=== PATIENT | female | born 1995 | race African-American/Black ===

== ENCOUNTER 2019-09-26 15:10 | Emergency (ER) | payer SELFPAY ==
--- NOTE | 2019-09-26 16:03 | ER Document Report ---
ED Medical Screen (RME) - General Chief Complaint: Abdominal Cramping Stated Complaint: ABDOMINAL CRAMPING Time Seen by Provider: 09/26/19 16:00 Mode of Arrival: Ambulatory Information source: Patient Notes: 24-year-old female presented to ED for complaint of vaginal discharge she says is white and chunky. She denies any itchy or burning. She does say that she is having some mild pelvic cramping for about a week. She states she lived in [place] before now and her primary care doctor told her that her heart water was causing her to have bacterial vaginosis and she did get treated for bacterial vaginosis at that time. She states she is in [place] to visit her family before she gets sent to [employer]. She states she leaves [place] on 08 October. Patient is alert oriented respirations regular nonlabored speaking in full sentences. She states she is sexually active. She states her last menstrual period was September 06. I have greeted and performed a rapid initial assessment of this patient. A comprehensive ED assessment and evaluation of the patient, analysis of test results and completion of medical decision making process will be conducted by an additional ED providers. Physical Exam - Vital signs Vitals: Temp Pulse Resp BP Pulse Ox 98.5 F 74 18 128/84 H 100 09/26/19 15:32 09/26/19 15:32 09/26/19 15:32 09/26/19 15:32 09/26/19 15:32 Course - Vital Signs Vital signs: Temp Pulse Resp BP Pulse Ox 98.5 F 74 18 128/84 H 100 09/26/19 15:32 09/26/19 15:32 09/26/19 15:32 09/26/19 15:32 09/26/19 15:32
[2019-09-26 16:53] LABS: ABSOLUTE EOSINOPHILS # (AUTO) 0.2 10^3/uL (0.0-0.6); ABSOLUTE LYMPHOCYTES (AUTO) 1.6 10^3/uL (0.5-4.7); ABSOLUTE MONOCYTES (AUTO) 0.4 10^3/uL (0.1-1.4); ABSOLUTE NEUT (AUTO) 4.9 10^3/uL (1.7-8.2); BASOPHILS % (AUTO) 0.4 % (0-2); EOSINOPHILS % (AUTO) 2.6 % (0-6); HEMATOCRIT 36.3 % (36.0-47.0); HEMOGLOBIN 12.1 g/dL (12.0-15.5); MEAN CORPUSCULAR HEMOGLOBIN 27.2 pg (27.0-33.4); MEAN CORPUSCULAR HGB CONC 33.3 g/dL (32.0-36.0); MEAN CORPUSCULAR VOLUME 82 fl (80-97); MONOCYTES % (AUTO) 6.1 % (3-13); PLATELET COUNT 208 10^3/uL (150-450); RED BLOOD COUNT 4.44 10^6/uL (3.72-5.28); RED CELL DISTRIBUTION WIDTH 13.8 % (11.5-14.0); SEGMENTED NEUTROPHILS % (AUTO) 67.9 % (42-78); TOTAL CELLS COUNTED % (AUTO) 100 %; WHITE BLOOD COUNT 7.2 10^3/uL (4.0-10.5)
[2019-09-26 16:58] LABS: APPEARANCE,URINE SLIGHTLY-CLOUDY; BILIRUBIN,URINE NEGATIVE (NEGATIVE); COLOR,URINE YELLOW; GLUCOSE, URINE NEGATIVE (NEGATIVE); KETONES,URINE 80 mg/dL (NEGATIVE); PROTEIN,URINE NEGATIVE (NEGATIVE); URINE SPECIFIC GRAVITY 1.031; UROBILINOGEN,URINE NEGATIVE mg/dL (<2.0)
[2019-09-26 17:21] LABS: ALBUMIN 4.6 g/dL (3.5-5.0); ALKALINE PHOSPHATASE 89 U/L (38-126); ANION GAP 10 (5-19); ASPARTATE AMINO TRANSFERASE 25 U/L (14-36); BILIRUBIN,DIRECT 0.1 mg/dL (0.0-0.4); BILIRUBIN,TOTAL 0.5 mg/dL (0.2-1.3); BLOOD UREA NITROGEN 13 mg/dL (7-20); CALCIUM 9.4 mg/dL (8.4-10.2); CARBON DIOXIDE 28 mmol/L (22-30); CHLORIDE 101 mmol/L (98-107); GLUCOSE 78 mg/dL (75-110); POTASSIUM 3.9 mmol/L (3.6-5.0); TOTAL PROTEIN 8.5 g/dL (6.3-8.2)
[2019-09-26 17:52] LABS: BACTERIA (WET MOUNT) 4+ BACTERIA SEEN; EPITHELIALS (WET MOUNT) 3+ EPITHELIALS SEEN; T.VAGINALIS (WET MOUNT) NO TRICHOMONAS SEEN; WBCS (WET MOUNT) 1+ WBCS SEEN; YEAST (WET MOUNT) NO YEAST SEEN
[2019-09-26] MEDS ORDERED: METRONIDAZOLE 500 MG TABLET PO ONE (18:27)
--- NOTE | 2019-09-26 18:29 | ER Document Report ---
ED General - General Chief Complaint: Abdominal Pain Stated Complaint: ABDOMINAL CRAMPING Time Seen by Provider: 09/26/19 16:00 Mode of Arrival: Ambulatory Notes: This 24-year-old female presents emergency department with complaints of vaginal discharge pelvic cramps for the past week. She denies fever vomiting diarrhea. Denies pain with void. She reports history of BV for which she was treated with Flagyl for 5 days. She reports she is sexually active with 2 partners one uses condoms. She reports she is here from [place]. 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 TRAVEL OUTSIDE OF THE [place] IN LAST 30 DAYS: No - HPI Onset: Last week Onset/Duration: Sudden Quality of pain: Achy, Cramping Associated symptoms: None Exacerbated by: Denies Relieved by: Denies Similar symptoms previously: Yes Recently seen / treated by doctor: No - Related Data Allergies/Adverse Reactions: Penicillins Allergy (Verified 09/26/19 16:00) Past Medical History - General Information source: Patient - Social History Smoking Status: Never Smoker Chew tobacco use (# tins/day): No Drug Abuse: None Occupation: [employer] Lives with: Family Family History: None Patient has suicidal ideation: No Patient has homicidal ideation: No - Medical History Medical History: Negative Surgical Hx: Negative Review of Systems - Review of Systems Notes: Review HPI for review of systems., All other systems negative Physical Exam - Vital signs Vitals: Temp Pulse Resp BP Pulse Ox 98.5 F 74 18 128/84 H 100 09/26/19 15:32 09/26/19 15:32 09/26/19 15:32 09/26/19 15:32 09/26/19 15:32 - Notes Notes: PHYSICAL EXAMINATION: GENERAL: Well-appearing and in no acute distress HEAD: Atraumatic, normocephalic. EYES: Pupils equal round extraocular movements intact, sclera anicteric, conjunctiva are normal. ENT: nares patent, Moist mucous membranes. NECK: Normal range of motion, supple without lymphadenopathy LUNGS: CTAB and equal. No wheezes rales or rhonchi. HEART: Regular rate and rhythm without murmurs ABDOMEN: Soft, no tenderness. No guarding, no rebound EXTREMITIES: Normal range of motion, no pitting edema. NEUROLOGICAL: Cranial nerves grossly intact. PSYCH: Normal mood, normal affect. SKIN: Warm, Dry, normal turgor, no rashes or lesions noted - Genitourinary External exam: Normal Speculum exam: Vaginal discharge Bimanuel exam: Normal Notes: vaginal discharge with odor noted. Course - Re-evaluation Re-evalutation: 09/26/19 18:27 24-year-old female presents emergency department with complaints of vaginal discharge pelvic cramps for 1 week. Reports history of BV for which she was treated with Flagyl for 5 days. She reports she looked it up online and she knows she should have been treated for 7 days. She denies fever vomiting diarrhea. Reports she is sexually active with 2 partners one that uses condoms. Patient was given the option of waiting for her STD cultures being treated prophylactically or being called with results. She has requested to be called with results. She will be treated for the BV here and given a prescription for Flagyl. She was instructed on the importance of follow-up with the FLIGHT RADIO OFFICER to ensure is all cleared up. She verbalized understanding to all instructions. 09/26/19 16:25 09/26/19 16:25 MCV 82 fl (80-97) 09/26/19 16:25 MCH 27.2 pg (27.0-33.4) 09/26/19 16:25 MCHC 33.3 g/dL (32.0-36.0) 09/26/19 16:25 RDW 13.8 % (11.5-14.0) 09/26/19 16:25 Seg Neutrophils % 67.9 % (42-78) 09/26/19 16:25 Chloride 101 mmol/L (98-107) 09/26/19 16:25 Carbon Dioxide 28 mmol/L (22-30) 09/26/19 16:25 Anion Gap 10 (5-19) 09/26/19 16:25 Est GFR ( Amer) > 60 (>60) 09/26/19 16:25 Glucose 78 mg/dL (75-110) 09/26/19 16:25 Calcium 9.4 mg/dL (8.4-10.2) 09/26/19 16:25 Total Bilirubin 0.5 mg/dL (0.2-1.3) 09/26/19 16:25 AST 25 U/L (14-36) 09/26/19 16:25 Alkaline Phosphatase 89 U/L (38-126) 09/26/19 16:25 Total Protein 8.5 g/dL (6.3-8.2) H 09/26/19 16:25 Albumin 4.6 g/dL (3.5-5.0) 09/26/19 16:25 Serum HCG, Qual NEGATIVE (NEGATIVE) 09/26/19 16:25 Urine Color YELLOW 09/26/19 16:25 Urine Appearance SLIGHTLY-CLOUDY 09/26/19 16:25 Urine pH 5.0 (5.0-9.0) 09/26/19 16:25 Ur Specific [place] 1.031 09/26/19 16:25 Urine Protein NEGATIVE mg/dL (NEGATIVE) 09/26/19 16:25 Urine Glucose (UA) NEGATIVE mg/dL (NEGATIVE) 09/26/19 16:25 Urine Ketones 80 mg/dL (NEGATIVE) H 09/26/19 16:25 Urine Blood NEGATIVE (NEGATIVE) 09/26/19 16:25 Urine RBC (Auto) 2 /HPF 09/26/19 16:25 09/26/19 19:55 STD cultures negative - Vital Signs Vital signs: Temp Pulse Resp BP Pulse Ox 98.4 F 71 16 107/66 100 09/26/19 18:47 09/26/19 18:47 09/26/19 18:47 09/26/19 18:47 09/26/19 18:47 - Laboratory Result Diagrams: 09/26/19 16:25 09/26/19 16:25 Laboratory results interpreted by me: 09/26/19 09/26/19 16:25 16:25 Total Protein 8.5 H Urine Ketones 80 H Leukocyte Esterase Rfl SMALL H Urine Ascorbic Acid 40 H Procedures - Pelvic Exam Pelvic exam Cultures obtained: Yes Wet prep obtained: Yes Herpes culture obtained: No POC sent to lab: No Foreign body removed: No Bimanual exam performed: Yes Witnessed by: Luci TANGoyster buyer - Discharge Clinical Impression: Vaginal discharge, Bacterial vaginosis Condition: Stable Disposition: HOME, SELF-CARE Instructions: Metronidazole (OM), [facility] [place], Vaginosis, Bacterial (OM) Additional Instructions: *You have been evaluated for vaginal discharge, bacterial vaginosis *The STD cultures are pending. You may contact the culture nurse at [phone] Tuesday through Tuesday 8 AM to 4 PM for your results. *Take medication as prescribed *Follow up with your WORD PROCESSING MACHINE OPERATOR or the health department for recheck *Avoid sexual intercourse until follow up *Return to ED for worsening condition, changes, needs Monitor your blood pressure. Your blood pressure was elevated today. This may be because you were anxious, in pain or because you need medication. It is important to follow up with your primary care provider for full evaluation. Prescriptions: Metronidazole [Flagyl 500 mg Tablet] 500 mg PO BID #14 tablet Forms: Elevated Blood Pressure
[2019-09-26 18:50] VITALS: BP 107/66
[2019-09-26 19:18] LABS: CHLAM PCR NOT DETECTED (NOT DETECT)
== END 2019-09-26 18:50 | disposition home or self-care (01) ==
LOC: ER 15:10
DX: N76.0 Acute vaginitis (principal); B96.89 Other specified bacterial agents as the cause of diseases classified elsewhere; R10.2 Pelvic and perineal pain; Z88.0 Allergy status to penicillin
CPT/HCPCS: 36415; 80053; 81001; 84703; 85025; 87086; 87088; 87210; 87491; 87591; 99283